=== PATIENT | female | born 1950 | race Caucasian/White ===

== ENCOUNTER 2017-02-24 15:28 | Emergency (ER) | payer OTHER, BC, MEDICARE ==
--- NOTE | 2017-02-24 15:54 | EDM.PDOC ---
ED HPI GENERAL MEDICAL PROBLEM - General Chief Complaint: Respiratory Problem Stated Complaint: PT HAS COUGH Time Seen by Provider: 02/24/17 16:15 Source of Information: Reports: Patient History Limitations: Reports: No Limitations - History of Present Illness INITIAL COMMENTS - FREE TEXT/NARRATIVE: History of present illness: [66-year-old female presenting with complaints of shortness of breath, coughing , and general sore throat and URI symptoms x48 hours.] Review of systems: As per history of present illness and below otherwise all systems reviewed and negative. Past medical history: As per history of present illness and as reviewed below otherwise noncontributory. Surgical history: As per history of present illness and as reviewed below otherwise noncontributory. Social history: No reported history of drug or alcohol abuse. Family history: As per history of present illness and as reviewed below otherwise noncontributory. Physical exam: HEENT: Atraumatic, normocephalic, pupils reactive, negative for conjunctival pallor or scleral icterus, mucous membranes moist, throat clear, neck supple, nontender, trachea midline. Lungs: Clear to auscultation, breath sounds and diminished otherwise equal bilaterally, chest nontender. Heart: S1S2, regular, negative for clicks, rubs, or JVD. Abdomen: Soft, nondistended, nontender. Negative for masses or hepatosplenomegaly. Negative for costovertebral tenderness. Pelvis: Stable nontender. Genitourinary: Deferred. Rectal: Deferred. Extremities: Atraumatic, negative for cords or calf pain. Neurovascular unremarkable. Neuro: Awake, alert, oriented. Cranial nerves II through XII unremarkable. Cerebellum unremarkable. Motor and sensory unremarkable throughout. Exam nonfocal. Global assessment was benign save subjective complaint as noted above. Patient does indicate that the cough is nagging, worse at night, and nonproductive. Diagnostics: [CXR] Therapeutics: [Duo neb] Impression: [Bronchitis] Plan: [Inhaler, Tessalon Perles, steroids] Definitive disposition and diagnosis as appropriate pending reevaluation and review of above. upper chest Pain Score (Numeric/FACES): 2 - Related Data Allergies Allergy/AdvReac Type Severity Reaction Status Date / Time No Known Allergies Allergy Verified 02/24/17 15:34 Home Meds: Home Meds Spironolactone [Aldactone] 25 mg PO DAILY 01/03/16 [History] Albuterol Sulfate [Proair Hfa] 2 puff IH Q6HR #1 hfa.aer.ad 02/24/17 [Rx] Benzonatate [Tessalon Perles] 200 mg PO TID #60 cap 02/24/17 [Rx] Inhaler, Assist Devices [Space Chamber Plus] 1 each ASDIRECTED #1 spacer [Rx] methylPREDNISolone [Medrol] 4 mg PO DAILY #21 tab.ds.pk 02/24/17 [Rx] traZODone 1 tab PO DAILY 02/24/17 [History] Past Medical History - Past Health History Medical/Surgical History: Denies Medical/Surgical History Social & Family History - Tobacco Use Smoking Status *Q: Never Smoker Second Hand Smoke Exposure: No - Alcohol Use Days Per Week of Alcohol Use: 0 - Recreational Drug Use Recreational Drug Use: No ED ROS GENERAL - Review of Systems Review Of Systems: See Below (The history of present illness) ED EXAM, GENERAL - Physical Exam Exam: See Below (History of present illness) Course - Vital Signs Last Recorded V/S: Last Vital Signs Temp 36.6 C 02/24/17 15:41 Pulse 71 02/24/17 15:41 Resp 16 02/24/17 15:41 BP 114/81 02/24/17 15:41 Pulse Ox 98 02/24/17 15:41 - Orders/Labs/Meds Orders: Active Orders 24 hr Category Date Time Status RT Aerosol Therapy [RC] ASDIRECTED Care 02/24/17 16:16 Active Chest 2V [CR] Stat Exams 02/24/17 16:15 Taken Meds: Medications Discontinued Medications Generic Name Dose Route Start Last Admin Trade Name Teeq PRN Reason Stop Dose Admin Albuterol/Ipratropium 3 ml 02/24/17 16:15 02/24/17 16:25 Duoneb 3.0-0.5 Mg/3 Ml NEB 02/24/17 16:16 3 ml ONETIME ONE Administration Departure - Departure Time of Disposition: 17:17 Disposition: Home, Self-Care 01 Condition: good Clinical Impression: Bronchitis - Discharge Information Prescriptions: Albuterol Sulfate [Proair Hfa] 2 puff IH Q6HR #1 hfa.aer.ad Benzonatate [Tessalon Perles] 200 mg PO TID #60 cap Inhaler, Assist Devices [Space Chamber Plus] 1 each ASDIRECTED #1 spacer methylPREDNISolone [Medrol] 4 mg PO DAILY #21 tab.ds.pk Instructions: Acute Bronchitis, [id number], Asthma, Adult Referrals: PCP,None [Primary Care Provider] - Forms: ED Department Discharge Additional Instructions: The following information is given to patients seen in the emergency department who are being discharged to home. This information is to outline your options for follow-up care. We provide all patients seen in our emergency department with a follow-up referral. The need for follow-up, as well as the timing and circumstances, are variable depending upon the specifics of your emergency department visit. If you don't have a primary care physician on staff, we will provide you with a referral. We always advise you to contact your personal physician following an emergency department visit to inform them of the circumstance of the visit and for follow-up with them and/or the need for any referrals to a consulting specialist. The emergency department will also refer you to a specialist when appropriate. This referral assures that you have the opportunity for follow-up care with a specialist. All of these measure are taken in an effort to provide you with optimal care, which includes your follow-up. Under all circumstances we always encourage you to contact your private physician who remains a resource for coordinating your care. When calling for follow-up care, please make the office aware that this follow-up is from your recent emergency room visit. If for any reason you are refused follow-up, please contact the [facility] Emergency Department at and asked to speak to the emergency department charge nurse. Take medication as directed Followup with PCP 1-2 days Return to ED as needed as discussed - My Orders Last 24 Hours: My Active Orders 02/24/17 16:15 Chest 2V [CR] Stat 02/24/17 16:16 RT Aerosol Therapy [RC] ASDIRECTED - Assessment/Plan Last 24 Hours: My Active Orders 02/24/17 16:15 Chest 2V [CR] Stat 02/24/17 16:16 RT Aerosol Therapy [RC] ASDIRECTED
[2017-02-24] MEDS ORDERED: Albuterol/Ipratropium 3.0-0.5 MG/3 ML Neb Soln NEB ONE (16:15)
[2017-02-24 17:34] VITALS: BP 112/70
--- NOTE | 2017-02-26 14:49 | CR ---
EXAM DATE: 02/24/17 PATIENT'S AGE: 66 Patient: ADITYA BLAIR Facility: [place], [place] Site . Site : 1950 Study: XRay Chest [id number]/20/2017 4:47:26 PM Ordering Physician: Doctor Terry Final Report: HISTORY: Cough and shortness of breath. Comparison: 10/18/2011. Findings: The lungs are clear. No evidence for pneumonia. Heart size and pulmonary vascularity within normal limits. Costophrenic angles sharp. Mild vertebral body wedging in the mid thoracic spine. Dictated by Abeba Nguyen MD @ Feb 24 2017 4:53PM (Electronic Signature) Report Signed by Proxy. DENIA
== END 2017-02-24 17:32 | disposition home or self-care (01) ==
LOC: MW.ED 15:28
DX: J40 Bronchitis, not specified as acute or chronic (principal); Z79.1 Long term (current) use of non-steroidal anti-inflammatories (NSAID); Z79.899 Other long term (current) drug therapy
CPT/HCPCS: 71020; 71020-26; 94664; 99283-25; 99284

== ENCOUNTER 2019-10-23 14:07 | Emergency (ER) | payer BC, MEDICARE, OTHER ==
--- NOTE | 2019-10-23 14:55 | EDM.PDOC ---
ED [facility] GENERAL MEDICAL PROBLEM - General Chief Complaint: Respiratory Problem Stated Complaint: COUGH Time Seen by Provider: 10/23/19 14:54 Source of Information: Reports: Patient History Limitations: Reports: No Limitations - History of Present Illness INITIAL COMMENTS - FREE TEXT/NARRATIVE: Patient is a 69-year-old female with no significant past medical history presenting with a chief complaint of cough. The cough is been ongoing for the past 3 weeks. Patient states that the cough is progressively getting worse. She denies any associated fevers, chills, chest pain, shortness of breath, arthralgias, breath or myalgias. Patient is concerned as her was recently diagnosed with coccidiomycosis pulmonary infection after being in [place]. Patient is concerned that she was exposed to dust spores from his truck after they were cleaning it out. Cough is worse at night and improved by nothing. No smoking history or secondhand smoke exposure. In addition to that documented in the HPI above, the additional ROS was obtained : Constitutional: Denies fevers or chills Eyes: Denies vision changes ENMT: Denies sore throat CV: Denies chest pain Resp: Denies SOB GI: Denies vomiting or diarrhea : Denies painful urination MSK: Denies recent trauma Skin: Denies new rashes Neuro: Denies new numbness or tingling or weakness Endocrine: Denies unexpected weight loss Heme: Denies bleeding disorders I have reviewed the triage vital signs Const: Well nourished, well developed, appears stated age Eyes: PERRL, no conjunctival injection HENT: NCAT, Neck supple without meningismus CV: RRR, Warm, well-perfused extremities RESP: CTAB, Unlabored respiratory effort GI: soft, non-tender, non-distended, no masses MSK: No gross deformities appreciated Skin: Warm, dry. No rashes Neuro: Alert, school admissions representative II-XII grossly intact. Sensation and motor function of extremities grossly intact. Psych: Appropriate mood and affect Assessment and plan Patient 69-year-old female presenting chronic cough. Broad differential diagnosis was considered including pneumonia, heart failure, viral infection, gastric reflux disease, fungal/tuberculosis. Patient's chest x-ray does not demonstrate any acute changes. Patient is not in any respiratory distress and is saturating well on room air. Patient given return precautions and instructed to follow-up with family medicine clinic for further evaluation. All questions addressed and answered. Patient agrees with plan. - Related Data Allergies Allergy/AdvReac Type Severity Reaction Status Date / Time No Known Allergies Allergy Verified 10/23/19 14:35 Home Meds: Home Meds Spironolactone [Aldactone] 25 mg PO DAILY 01/03/16 [History] traZODone 200 mg PO BEDTIME 02/24/17 [History] Past Medical History - Past Health History Medical/Surgical History: Denies Medical/Surgical History HEENT History: Reports: None Cardiovascular History: Reports: None Respiratory History: Reports: None Gastrointestinal History: Reports: Diverticulosis Genitourinary History: Reports: None [employer] History: Reports: Musculoskeletal History: Reports: None Neurological History: Reports: None Psychiatric History: Reports: None Endocrine/Metabolic History: Reports: None Hematologic History: Reports: None Immunologic History: Reports: None Oncologic (Cancer) History: Reports: None Dermatologic History: Reports: None - Infectious Disease History Infectious Disease History: Reports: None - Past Surgical History HEENT Surgical History: Reports: Tonsillectomy GI Surgical History: Reports: Colonoscopy Female Surgical History: Reports: Hysterectomy Social & Family History - Family History Family Medical History: Noncontributory - Tobacco Use Smoking Status *Q: Never Smoker - Caffeine Use Caffeine Use: Reports: None - Recreational Drug Use Recreational Drug Use: No ED ROS GENERAL - Review of Systems Review Of Systems: See Below ED EXAM, GENERAL - Physical Exam Exam: See Below Course - Vital Signs Last Recorded V/S: Last Vital Signs Temp 36.6 C 10/23/19 14:32 Pulse 77 10/23/19 14:32 Resp 16 10/23/19 14:32 BP 139/79 10/23/19 14:32 Pulse Ox 96 10/23/19 14:32 Departure - Departure Time of Disposition: 15:37 Disposition: Home, Self-Care 01 Clinical Impression: Cough - Discharge Information Instructions: Cough, Adult, [id number] Referrals: PCP,None [Primary Care Provider] - Forms: ED Department Discharge Additional Instructions: The following information is given to patients seen in the emergency department who are being discharged to home. This information is to outline your options for follow-up care. We provide all patients seen in our emergency department with a follow-up referral. The need for follow-up, as well as the timing and circumstances, are variable depending upon the specifics of your emergency department visit. If you don't have a primary care physician on staff, we will provide you with a referral. We always advise you to contact your personal physician following an emergency department visit to inform them of the circumstance of the visit and for follow-up with them and/or the need for any referrals to a consulting specialist. The emergency department will also refer you to a specialist when appropriate. This referral assures that you have the opportunity for follow-up care with a specialist. All of these measure are taken in an effort to provide you with optimal care, which includes your follow-up. Under all circumstances we always encourage you to contact your private physician who remains a resource for coordinating your care. When calling for follow-up care, please make the office aware that this follow-up is from your recent emergency room visit. If for any reason you are refused follow-up, please contact the [facility] Emergency Department at and asked to speak to the emergency department charge nurse. Please schedule an appointment with family medicine clinic for follow-up and further evaluation of this chronic cough. Sepsis Event Note - Evaluation Sepsis Screening Result: No Definite Risk - Focused Exam Vital Signs: Vital Signs Temp Pulse Resp BP Pulse Ox 10/23/19 14:32 36.6 C 77 16 139/79 96 Date Exam was Performed: 10/23/19 Time Exam was Performed: 15:36
--- NOTE | 2019-10-23 15:29 | CR ---
Chest: 2 views of the chest were obtained. Comparison: Prior chest x-ray of 02/24/17. Heart size is normal. Tortuous thoracic aorta is noted. Lungs are clear with no acute parenchymal change. Scattered disc space narrowing and endplate spurring is noted within the spine with scoliosis. Impression: 1. Findings as noted above. 2. Nothing acute is appreciated on 2 view chest x-ray. Diagnostic code #2 This report was dictated in [place] Standard Time
[2019-10-23 15:57] VITALS: BP 134/83; PULSE 73
== END 2019-10-23 15:57 | disposition home or self-care (01) ==
LOC: MW.ED 14:07
DX: R05 Cough (principal); Z79.899 Other long term (current) drug therapy
CPT/HCPCS: 71046; 71046-26; 99283-25

== ENCOUNTER 2019-11-30 13:29 | Emergency (ER) | payer OTHER ==
--- NOTE | 2019-11-30 13:48 | EDM.PDOC ---
ED HPI GENERAL MEDICAL PROBLEM - General Chief Complaint: General Stated Complaint: TOOTH COMPLAINT Time Seen by Provider: 11/30/19 13:48 Source of Information: Reports: Patient History Limitations: Reports: No Limitations - History of Present Illness INITIAL COMMENTS - FREE TEXT/NARRATIVE: HISTORY AND PHYSICAL: History of present illness: Patient is a 69-year-old female presents to the ED with complaint of tooth pain. Patient states her right lower molar has been bother her for the past 2 days. She states she has scheduled an appointment with a dentist in 3 days but states he would not prescribe her antibiotics as she has never been seen there before. She states she has been taking some left over antibiotics for the past couple of days. She denies fevers, chills, trismus. Patient requesting diflucan for after antibiotics as she always gets yeast infections. Review of systems: As per history of present illness and below otherwise all systems reviewed and negative. Past medical history: As per history of present illness and as reviewed below otherwise noncontributory. Surgical history: As per history of present illness and as reviewed below otherwise noncontributory. Social history: No reported history of drug or alcohol abuse. Family history: As per history of present illness and as reviewed below otherwise noncontributory. Physical exam: General: Patient sitting comfortably in no acute distress and nontoxic appearing HEENT: Poor dentition throughout. Right back molar with cavities. Adjacent gum swelling and erythema. Atraumatic, normocephalic, pupils reactive, negative for conjunctival pallor or scleral icterus, mucous membranes moist, throat clear, neck supple, nontender, trachea midline. No meningeal signs. Lungs: Clear to auscultation, breath sounds equal bilaterally, chest nontender. Heart: S1S2, regular, negative for clicks, rubs, or overt murmur. Abdomen: Soft, nondistended, nontender. Negative for masses or hepatosplenomegaly. Negative for costovertebral tenderness. No rigidity, rebound , guarding. Pelvis: Stable nontender. Genitourinary: Deferred. Rectal: Deferred. Extremities: Atraumatic, negative for cords or calf pain. Neurovascular unremarkable. Neuro: Awake, alert, oriented. Cranial nerves II through XII unremarkable. Cerebellum unremarkable. Motor and sensory unremarkable throughout. Exam nonfocal. Notes: Diagnostics: none Therapeutics: none Prescriptions: Augmentin, Diflucan Impression: Dental infection Plan: Take antibiotic as instructed Alternate tylenol and motrin as needed Follow up with dentist Return to ED as needed as discussed Definitive disposition and diagnosis as appropriate pending reevaluation and review of above. Right lower dental Pain Score (Numeric/FACES): 4 - Related Data Allergies Allergy/AdvReac Type Severity Reaction Status Date / Time No Known Allergies Allergy Verified 11/30/19 13:58 Home Meds: Home Meds Spironolactone [Aldactone] 25 mg PO DAILY 01/03/16 [History] Amoxicillin/Potassium Clav [Augmentin 875-125 Tablet] 1 each PO BID 7 Days #14 tablet 11/30/19 [Rx] Fluconazole [Diflucan] 100 mg PO ONETIME #1 tablet 11/30/19 [Rx] Past Medical History - Past Health History Medical/Surgical History: Denies Medical/Surgical History HEENT History: Reports: None Cardiovascular History: Reports: None Respiratory History: Reports: None Gastrointestinal History: Reports: Diverticulosis Genitourinary History: Reports: None HEALTH TECH History: Reports: Musculoskeletal History: Reports: None Neurological History: Reports: None Psychiatric History: Reports: None Endocrine/Metabolic History: Reports: None Hematologic History: Reports: None Immunologic History: Reports: None Oncologic (Cancer) History: Reports: None Dermatologic History: Reports: None - Infectious Disease History Infectious Disease History: Reports: None - Past Surgical History HEENT Surgical History: Reports: Tonsillectomy GI Surgical History: Reports: Colonoscopy Female Surgical History: Reports: Hysterectomy Social & Family History - Family History Family Medical History: Noncontributory - Caffeine Use Caffeine Use: Reports: None ED ROS GENERAL - Review of Systems Review Of Systems: Comprehensive ROS is negative, except as noted in HPI. ED EXAM, GENERAL - Physical Exam Exam: See Below (See dictation) Course - Vital Signs Last Recorded V/S: Last Vital Signs Temp 98.1 F 11/30/19 13:58 Pulse 81 11/30/19 13:58 Resp 18 11/30/19 13:58 BP 141/80 H 11/30/19 13:58 Pulse Ox 97 11/30/19 13:58 Departure - Departure Time of Disposition: 14:16 Disposition: Home, Self-Care 01 Condition: Good Clinical Impression: Dental infection - Discharge Information Prescriptions: Amoxicillin/Potassium Clav [Augmentin 875-125 Tablet] 1 each PO BID 7 Days #14 tablet Fluconazole [Diflucan] 100 mg PO ONETIME #1 tablet Referrals: PCP,None [Primary Care Provider] - Forms: ED Department Discharge Additional Instructions: The following information is given to patients seen in the emergency department who are being discharged to home. This information is to outline your options for follow-up care. We provide all patients seen in our emergency department with a follow-up referral. The need for follow-up, as well as the timing and circumstances, are variable depending upon the specifics of your emergency department visit. If you don't have a primary care physician on staff, we will provide you with a referral. We always advise you to contact your personal physician following an emergency department visit to inform them of the circumstance of the visit and for follow-up with them and/or the need for any referrals to a consulting specialist. The emergency department will also refer you to a specialist when appropriate. This referral assures that you have the opportunity for follow-up care with a specialist. All of these measure are taken in an effort to provide you with optimal care, which includes your follow-up. Under all circumstances we always encourage you to contact your private physician who remains a resource for coordinating your care. When calling for follow-up care, please make the office aware that this follow-up is from your recent emergency room visit. If for any reason you are refused follow-up, please contact the [facility] Emergency Department at and asked to speak to the emergency department charge nurse. [facility] [address] [place] [id number] [facility] [address] [place] [id number] Take antibiotic as instructed Alternate tylenol and motrin as needed Follow up with dentist Return to ED as needed as discussed Sepsis Event Note - Focused Exam Vital Signs: Vital Signs Temp Pulse Resp BP Pulse Ox 11/30/19 13:58 98.1 F 81 18 141/80 H 97 Date Exam was Performed: 11/30/19 Time Exam was Performed: 14:12
[2019-11-30 14:01] VITALS: BP 141/80; PULSE 81
== END 2019-11-30 14:36 | disposition home or self-care (01) ==
LOC: MW.ED 13:29
DX: K04.7 Periapical abscess without sinus (principal); Z79.899 Other long term (current) drug therapy
CPT/HCPCS: 99282